=== PATIENT | female | born 2000 | race Two or more races ===

== ENCOUNTER 2024-08-24 15:00 | Observation (INO) | payer SELFPAY ==
[2024-08-24] VITALS (18 sets, daily range): BP systolic 97; BP diastolic 62–63; PULSE 69–85; RESP 18–99; TEMP 36.6; O2SAT 99–100; BMI 20.6
--- NOTE | 2024-08-24 15:40 | XR_ITS ---
Examination: age Limited TECHNIQUE: Limited transabdominal sonographic images pelvis Exam date and time: August 24, 2024 1601 hours INDICATIONS: with decreased movement today FINDINGS: Cardiac motion 125 BPM Amniotic fluid index 17.3 cm IMPRESSION: Cardiac motion 125 BPM Amniotic fluid index 17.3 cm
== END 2024-08-24 16:32 | disposition home or self-care (01) ==
PROVIDERS: Admitting Provider Obstetrics & Gynecology; Visit Provider Obstetrics & Gynecology
DX: O47.03 False labor before 37 completed weeks of gestation, third trimester (principal); Z3A.32 32 weeks gestation of pregnancy
CPT/HCPCS: 59025; 59899; 76815

== ENCOUNTER 2024-10-12 07:21 | Inpatient (IN) | payer MEDICAID, SELFPAY ==
[2024-10-12] VITALS (35 sets, daily range): BP systolic 97–131; BP diastolic 53–77; PULSE 55–98; RESP 16–100; TEMP 36.6–36.9; O2SAT 84–100; BMI 21.2
[2024-10-12] MEDS: Ampicillin Inj 2,000 MG in SODIUM CHLORIDE 0.9% (POP) 100 ML 200 MG IV (07:43)
[2024-10-12 07:58] LABS: Basophils % (Auto) 0 % (0-2.5); Eosinophils # (Auto) 0.1 Thou/mm3 (0.0-0.5); Eosinophils % (Auto) 1 % (0-10); Hemoglobin 10.2 g/dL (12.0-16.0); Immature Granulocytes % (Auto) 0 % (0-0); Immature Granulocytes Auto 0.02 Thou/mm3 (0.00-0.00); Lymphocytes # (Auto) 1.7 Thou/mm3 (1.0-4.8); Lymphocytes % (Auto) 25 % (10-50); Mean Corpuscular HGB Conc 32.9 g/dl (31.0-37.0); Mean Corpuscular Hemoglobin 26.2 pg (25.0-35.0); Mean Corpuscular Volume 80 fL (80-100); Monocytes # (Auto) 0.5 Thou/mm3 (0.0-0.8); Monocytes % (Auto) 7 % (0-12); Neutrophils # (Auto) 4.6 Thou/mm3 (1.8-7.7); Neutrophils % (Auto) 67 % (37-80); Nucleated Red Blood Cell % 0 /100 WBC (0); Platelet Count 198 Thou/mm3 (140-440); RDW Standard Deviation 46.6 fL (36.4-46.3); Red Blood Count 3.89 Miln/mm3 (4.00-5.20); White Blood Count 6.8 Thou/mm3 (3.6-11.0)
[2024-10-12 08:36] LABS: Syphilis Nonreactive (Nonreactive)
[2024-10-12] MEDS: MINERAL OIL 30 ML UDC TOP (08:52)
[2024-10-12] MEDS: MISOPROSTOL 200 mCg TABLET 800 MCG PR (08:58)
[2024-10-12] MEDS: OXYTOCIN INJ 10 UNIT/ML VIAL IM (09:00)
[2024-10-12] MEDS: OXYTOCIN in NS 20 units 20 UNIT/1,000 ML BAG 125 UNIT IV (09:00)
[2024-10-12] MEDS: BENZO/LANO/ALOE (Dermoplast) 60 GM CAN 1 SPRAY TOP (09:04)
[2024-10-12] MEDS: IBUPROFEN TAB 400 MG TABLET 800 MG PO ×2 (09:11→21:41)
--- NOTE | 2024-10-12 09:21 | PD.LDHP ---
Documentation for date of: 10/12/24 OB Labor/Induct. HPI History of Present Illness Chief complaint: labor : 3 Para: 2 Term pregnancies: 2 pregnancies: 0 Living children: 2 History of Abortions: Spontaneous and Elective: 0 History of Vaginal deliveries: 2 History of sections: No History of : No Date of last menstrual period: 01/06/24 LINDA: 10/17/24 Gestational Age (weeks): 39 Gestational Age (days): 2 Gestational age based on last menstrual period: 40 History of present illness: 24-year-old 3 para 2 admitted to labor and delivery with complaints of leaking fluid since 6:30 AM contractions since 640. Patient's been followed at [facility] care. First visit 8 weeks. Last. Was unknown because patient still breast-feeding. By ultrasound last period January 06, 2024. And EDC October 17, 2024. Patient's has been uneventful. O+, antibody screen negative, RPR nonreactive, rubella, hepatitis B negative, hep C negative, HIV was negative. Patient had a normal 1 hour GTT. She GC and Chlamydia were negative. GBS positive. Patient denies social habits. Denies surgery. Denies chronic illness. History of Present Dating criteria: LMP confirmed by 1st trimester US Adequate Care: Yes Ultrasounds: normal 1st trimester US and normal mid trimester US Obstetrical complications: none Medical complications: none Labs Labs: Positive: Rubella Titre and Group Beta Strep, Negative: RPR, Hepatitis B, HIV, Chlamydia and Gonorrhea and Unknown: Herpes Type 1, Herpes Type 2 and Covid-19 Review of Systems Review of Systems Systems Reviewed: All systems reviewed, normal except as documented Past Medical History Surgical History SURGICAL: Negative Section Meds Home Medications and Allergies Home Medications ?Medication ?Instructions ?Recorded ?Confirmed ?Type prenat.vits,chayito,vvo-tsfd-vknwp 1 tab PO QDAY 04/21/20 08/24/24 History ferrous sulfate 325 mg (65 mg 325 mg PO QDAY 05/12/20 10/12/24 History iron) tablet Allergies Allergy/AdvReac Type Severity Reaction Status Date / Time No Known Allergies Allergy Verified 10/12/24 07:57 OB Exam Physical Exam Vital signs: Temp Pulse Resp BP Pulse Ox 97.8 F 78 18 103/64 99 10/12/24 08:09 10/12/24 09:18 10/12/24 08:09 10/12/24 09:18 10/12/24 08:57 Narrative: Normal heart rate and rhythm. Lungs clear no wheezes. Gravid abdomen. Gynecoid pelvis. Estimated weight 7 and half pounds. Vaginal exam admission was 80%, 4, -2. Vertex. Leaking clear fluid. heart rate category 1 with accelerations and moderate variability and regular contractions. Detailed Labor and Delivery Exam Dilation (cm): 4 Effacement (%): 80 Cervix position: anterior station: -2 Consistency: soft Presentation: Vertex Cervical ripeness score: 8 Membranes: ruptured Amniotic fluid: clear Baseline heart rate: 135 monitor accelerations: 15x15 monitor decelerations: None [facility] variability: Moderate (11-25) Contraction frequency (min): 2-3 Contraction duration (sec): moderate Tachysystole: No Contraction intensity: Moderate OB Results Labs 10/12/24 07:35 Labs: Short CBC 10/12/24 Range/Units 07:35 WBC 6.8 (3.6-11.0) Thou/mm3 Hgb 10.2 L (12.0-16.0) g/dL Hct 31.0 L (36.0-46.0) % Plt Count 198 (140-440) Thou/mm3 OB Assessment & Plan Assessment and Plan (1) Normal labor and delivery: Status: Acute Additional Plan Induction method: none Plan: anticipate NVD, GBS prophylaxis tx and consult MD doran
[2024-10-12] MEDS: TRANEXAMIC ACID 1,000 MG IVPB 1,000 MG/100 ML BAG 200 MG IV (09:31)
--- NOTE | 2024-10-12 09:58 | PD.LDDELS ---
Data (Chandler) Data Hx Section: No : 3 Term: 2 : 0 Livin Abortions: Spontaneous & Theraputic: 0 Delivery Data (Chandler) Labor Data Initiation of labor: Spontaneous Induction/Augmentation Agent: None ROM date: 10/12/24 ROM time: 06:30 Amniotic membrane rupture type: Spontaneous Amniotic fluid description: Clear Delivery Data EDC: 10/17/24 EDC calculated by:: LMP/early US confirmation Date of arrival to unit: 10/12/24 Time of arrival to unit: 07:21 Onset of labor date: 10/12/24 Onset of labor time: 06:30 Complete dilation date: 10/12/24 Complete dilation time: 08:42 delivery date: 10/12/24 delivery time: 08:54 Gestational age (weeks): 39 Gestational age (days): 2 Placenta delivery date: 10/12/24 Placenta delivery time: 09:00 Stage 1 total time: Labor - Stage 1 Duration 2 hours and 12 minutes Delivered by: Kathy Handy Delivery nurse: melva Harry nurse: stephanie jasso Project Reservoir Engineer at delivery: No Support person(s) at delivery: FOB Delivery Method Delivery: Vaginal Delivery Type: Spontaneous Presentation: Vertex Position: OA Anesthesia Type Primary Anesthesia: None Secondary Anesthesia: None Delivery Room Medications Intrapartum Medications: Antibiotics Other Intrapartum Medications: No Post Delivery Medications: Tocolytics and Cytotec Post Delivery Medications N/A: No Placenta Placenta Delivery: Spontaneous (inspected, intact) Placenta Cultures Obtained: No Placenta Sent for Examination: No Cord Sample: Cord Blood Obtained Episiotomy Episiotomy: None EBL Estimated blood loss (ml): 400 Umbilical Cord Umbilical Vessels: 3 Nuchal Cord: None Body Cord: None Data (Chandler) Data order: 1 [place]'s gender: Male weight (gms): 3545 g Weight (pounds): 7 lbs and 13.0 ozs 1 minute: 9 5 minutes: 10
[2024-10-12 18:22] LABS: Basophils % (Auto) 0 % (0-2.5); Eosinophils % (Auto) 0 % (0-10); Hematocrit 26.4 % (36.0-46.0); Hemoglobin 8.7 g/dL (12.0-16.0); Immature Granulocytes % (Auto) 1 % (0-0); Immature Granulocytes Auto 0.05 Thou/mm3 (0.00-0.00); Lymphocytes # (Auto) 1.6 Thou/mm3 (1.0-4.8); Lymphocytes % (Auto) 15 % (10-50); Mean Corpuscular Hemoglobin 25.7 pg (25.0-35.0); Mean Corpuscular Volume 78 fL (80-100); Monocytes # (Auto) 0.6 Thou/mm3 (0.0-0.8); Monocytes % (Auto) 6 % (0-12); Neutrophils # (Auto) 8.1 Thou/mm3 (1.8-7.7); Neutrophils % (Auto) 79 % (37-80); Nucleated Red Blood Cell # 0.02 Thou/mm3 (0.00-0.00); Nucleated Red Blood Cell % 0 /100 WBC (0); Platelet Count 153 Thou/mm3 (140-440); RDW Standard Deviation 46.6 fL (36.4-46.3); Red Blood Count 3.39 Miln/mm3 (4.00-5.20); White Blood Count 10.4 Thou/mm3 (3.6-11.0)
[2024-10-12] MEDS: DOCUSATE SOD 100 MG CAPSULE PO (21:38)
[2024-10-13 04:33] VITALS: BP 102/62; PULSE 57; RESP 16; TEMP 36.3; O2SAT 98
[2024-10-13 08:00] VITALS: BP 95/55; PULSE 59; PULSE 60; RESP 15; TEMP 36.7; O2SAT 98
[2024-10-13] MEDS: DOCUSATE SOD 100 MG CAPSULE PO (08:56)
--- NOTE | 2024-10-13 10:02 | PD.LDPPPRG ---
Subjective Subjective Interval history: No complaints of pain. No dizziness. Bonding and breast-feeding Exam Vital Signs Temp Pulse Resp BP Pulse Ox O2 Del Method 97.4 F 57 L 16 102/62 98 Room Air 10/13/24 04:33 10/13/24 04:33 10/13/24 04:33 10/13/24 04:33 10/13/24 04:33 10/13/24 04:33 Narrative Exam Vital signs stable afebrile. Breasts are soft. Fundus firm below the umbilicus. Perineum intact no swelling. Small lochia. Uterus well involuted. Negative Homans' sign. Objective Labs 10/12/24 18:00 Labs: Laboratory Results - last 24 hr 10/12/24 10/12/24 07:35 18:00 WBC 10.4 D RBC 3.39 L Hgb 8.7 L Hct 26.4 L MCV 78 L MCH 25.7 MCHC 33.0 RDW Std Deviation 46.6 H Plt Count 153 D Neut % (Auto) 79 Lymph % (Auto) 15 [place] % (Auto) 6 Eos % (Auto) 0 Baso % (Auto) 0 Neut # (Auto) 8.1 H Lymph # (Auto) 1.6 [place] # (Auto) 0.6 Eos # (Auto) 0.0 Baso # (Auto) 0.0 Immature Gran # (Auto) 0.05 H Absolute Nucleated RBC 0.02 H Immature Gran % 1 H Nucleated RBC % 0 Blood Type O Positive Antibody Screen NEGATIVE Blood Bank Wristband ID Yes Assessment & Plan Problem List (1) Normal labor and delivery: Status: Acute Assessment and plan: 24 hr pp Plan Comment Plan Comment: Discharge home with baby. Continue vitamins and iron. Tylenol ibuprofen for pain. Discussed danger signs and symptoms and ER precautions with parameters. Discussed signs symptoms of infection. Increase fluid and rest. Return in 3 weeks visit Time Spent With Patient Time: Total time spent is greater than 50% in coordination of care (as documented) at patient's floor/unit and/or counseling patient:
--- NOTE | 2024-10-13 10:03 | PD.LDDS ---
DS: Providers Provider Date of admission: 10/12/24 07:26 Primary care physician: Physician No Primary/Family Admitting Provider: Karissa Singer MD (OB Clinic) Attending Provider on Admission: Johan Arita MD Consults: 10/12/24 11:37 Referral Routine Comment: Attending Provider on DC: Kathy Handy CNM Discharging Provider: Kathy Handy CNM DS: Diagnosis Problem List Completed Was Problem List Reviewed/Reconciled?: Yes Summary/Hosp Course Brief History: 24-year-old 3 para 2 admitted to labor and delivery with complaints of leaking fluid since 6:30 AM contractions since 640. Patient's been followed at [facility] care. First visit 8 weeks. Last. Was unknown because patient still breast-feeding. By ultrasound last period January 06, 2024. And EDC October 17, 2024. Patient's has been uneventful. O+, antibody screen negative, RPR nonreactive, rubella, hepatitis B negative, hep C negative, HIV was negative. Patient had a normal 1 hour GTT. She GC and Chlamydia were negative. GBS positive. Patient denies social habits. Denies surgery. Denies chronic illness. Peripartum Data Delivery Method: Normal Vaginal Delivery Episiotomy Description: None Laceration Description: no complications: none Time Spent with Patient Time attestation: Total time spent providing and/or coordinating discharge services: Exam Vital Signs Temp Pulse Resp BP Pulse Ox O2 Del Method 97.4 F 57 L 16 102/62 98 Room Air 10/13/24 04:33 10/13/24 04:33 10/13/24 04:33 10/13/24 04:33 10/13/24 04:33 10/13/24 04:33 Discharge Plan Plan Patient Disposition: HOME (Self Care) Disposition Comment: f/u with OB in 6 weeks. Avoid strenuous activity / intercourse for 6 weeks Patient condition on transfer: Stable Prescriptions/Referrals Prescriptions/Med Rec: No Action Vitamin Tablet 1 tab PO QDAY ferrous sulfate 325 mg (65 mg iron) Tablet 325 mg PO QDAY Referrals: No Primary/Family,Physician [Primary Care Provider] - Patient/Caregiver Discharge Instructions Meds to Beds: No Discharge Activity: resume usual activities Other Discharge Activity Instructions:: f/u with OB in 6 weeks. Avoid strenuous activity / intercourse for 6 weeks Other Discharge Diet Instructions: Stay hydrated and keep a regular diet Education Materials: After a Vaginal , After Delivery [place]bo Concerns, Breast Care After , : Caring for Yourself Print Language: Irish Activity Restrictions/Additional Instructions: Avoid strenuous activity / intercourse for 6 weeks. Reviewed signs and symptoms of infection. Discussed ER precautions and parameters. Discussed discussed danger signs and symptoms. Discharge home today with baby. Increase fluids. Tylenol ibuprofen for pain. Continue prenatals. Patient can return to [facility] OB clinic in 3 weeks Stand Alone Forms: Yen Award Info., Patient Portal Info Letter Discharge Order Discharge Orders: Discharge (Routine); Ordered 10/13/24 Ordered By: Kathy Handy Planned Discharge Date 10/13/24
== END 2024-10-13 12:15 | disposition home or self-care (01) | DRG 560 ==
LOC: S4SX 09:22 → S4NX 12:38 → S4SX 10-15 05:57
PROVIDERS: Advanced Practice Midwife; Admitting Provider Obstetrics & Gynecology; Visit Provider Obstetrics & Gynecology
DX: O99.824 Streptococcus B carrier state complicating childbirth (principal); Z3A.39 39 weeks gestation of pregnancy; Z37.0 Single live birth
CPT/HCPCS: 36415; 59025; 59409; 85025; 86780; 86850; 86900; 86901; 94762; J0290; J2590; J3490; S0191; A9270